=== PATIENT | male | born 1965 | race Caucasian/White ===

== ENCOUNTER 2024-06-01 14:59 | Outpatient (CLI) | payer OTHER, SELFPAY ==
--- NOTE | 2024-06-01 15:03 | CT_ITS ---
WS: [id number] LDCT LUNG CANCER SCREENING HISTORY: NICOTINE DEPENDENCE TECHNIQUE: Axial imaging performed from the apices to 1 cm below the costophrenic angles. Coronal and sagittal reformats are submitted with axial MIP series. All CT scans at [facility] use at least one of these dose optimization techniques: automated exposure control; mA and/or kV adjustment per patient size (includes targeted exams where dose is matched to clinical indication); or iterative reconstruction. DLP: 59.78 mGy.cm DIvol: Mean CTDIvol: 1.00 (mGy) COMPARISON: None available. Diagnostic quality: Satisfactory Lungs: Hyperexpansion with paraseptal and centrilobular emphysema. RIGHT upper lobe 6 mm ovoid nodule, image 37 series 4. Additional biapical pleural thickening bilaterally. Small pleural tag anterior LEFT upper lobe. Scattered benign granulomata throughout both lungs. No endobronchial lesions. Heart: Normal size heart with no pericardial effusion.. Other findings: Calcified hilar and mediastinal lymph nodes. No additional lymph nodes identified. Normal size aorta and pulmonary artery. No adrenal mass. Splenic granulomata. Minimal thoracic spondylosis. CT/CT lung screening [id number] IMPRESSION: LUNG-RADS: 3-Probably Benign FOLLOW UP: 6 Month LDCT OTHER FINDINGS (S MODIFIER): None.
== END 2024-06-01 15:00 | disposition home or self-care (01) ==
PROVIDERS: Visit Provider Electrodiagnostic Medicine
DX: Z12.2 Encounter for screening for malignant neoplasm of respiratory organs (principal); F17.210 Nicotine dependence, cigarettes, uncomplicated; J43.2 Centrilobular emphysema; J43.8 Other emphysema; J92.9 Pleural plaque without asbestos; R91.1 Solitary pulmonary nodule; R91.8 Other nonspecific abnormal finding of lung field; J84.10 Pulmonary fibrosis, unspecified; I89.8 Other specified noninfective disorders of lymphatic vessels and lymph nodes; R93.89 Abnormal findings on diagnostic imaging of other specified body structures
CPT/HCPCS: 71271

== ENCOUNTER 2025-03-04 14:34 | Emergency (ER) | payer OTHER, SELFPAY ==
[2025-03-04 14:38] VITALS: BP 162/99; PULSE 92; RESP 18; TEMP 36.7; O2SAT 98; BMI 20.7
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
--- OUTSIDE RECORDS SUMMARY | 2025-03-04 16:39 | XMS_ITS | Data Portability ---
Author Organization [employer] Yogesh Heller [facility] Address [address] [facility] [address] [place] [address] Care Team Providers Care Customs Compliance Director Name Role Phone YOBANY BLANCHARD Primary Care Provider Unavailabl e Assessment Encounter Date Assessment Date Assessment LastModified by Organization Details LastModified Time 05/19/2024 05/19/2024 Document scribed by Jorge Luis Orta Software Quality Specialist. I was present during interview and exam. I have reviewed and agree with above documentation . Dr. Yobany Blanchard. [email or web address] Not available 05/19/2024 16:41:16 Plan of Treatment Reminders Order Date Submit Date Provider Last Modified By Organization Details Last Modified Time Details Appointments None recorded. Lab CMP, serum or plasma 2024 025 [facility], [address] [facility], [facility] [address], [place], [address], 09:39:10 lipid panel, blood 2024 025 [facility], [address] [facility], [facility] [address], [address], 5 09:39:12 CBC 2024 025 [facility], [address] [facility], [facility] [address], [place], [address], 5 08:54:16 Referral None recorded. Procedures injection/a spiration large joint/bursa (PROC) 2024 025 asurface Not available 5 10:41:06 Surgeries None recorded. Imaging LDCT, chest, for lung cancer screening 2024 [facility] Imaging Orders, [address], [place], [address], 5 14:08:44 Medication Orders Kenalog 40 mg/mL suspension for injection 2024 025 Not available 5 18:25:04 azelastine 137 mcg (0.1 %) nasal spray 2024 025 [id number] [address], [address], [place], [address], 5 05:01:15 prednisone 20 mg tablet 2024 025 [id number], [address], [address], [place], [address], 5 05:01:22 amoxicillin 875 mg-potassiu m clavulanate 125 mg tablet [address] [facility] #[id number], [address], [address], [place], [address], 5 10:27:05 benzonatate 200 mg capsule [address] [facility] #[id number], [address], [address], [place], [address], 5 10:27:09 montelukast 10 mg tablet [address] [facility] #[id number], [address], [address], [place], [address], 4 15:25:50 prednisone 20 mg tablet [address] [facility] #[id number], [address], [address], [place], [address], 05:01:22 Patient TargetsNo targets recorded. Patient Instructions Encounter Date Encounter Id Patient Instructions Last Modified By Organization Details Last Modified Time 05/19/2023 [id number] labs reviewed an d excellent mood has been good xray showed arthritis of ankle and now in a severe inflamation flare; will give steroid burst as this helped in the past [email or web address] Not available 05/19/2023 15:23:33 Reason for Referral None Reported. Results Created Date Observation Date Name Description Value Unit Range Abnormal Flag Note LastModifiedBy Organization Detail LastModifiedTime 05/09/1905/09/2023 CBC WBC 6.2 x10 4.5-10 .5 Not Available [facility] [address], [place], [address], 05/09/2023 09:07:11 05/09/1905/09/2023 CBC RBC 4.36 x10 4.30-5 .90 Not Available [facility] [address], [place], [address], 05/09/2023 09:07:11 05/09/1905/09/2023 CBC HGB 13.9 g/dL 13.5-1 8.0 Not Available [facility] [address], [place], [address], 05/09/2023 09:07:11 05/09/1905/09/2023 CBC HCT 41.0 % 35.0-6 0.0 Not Available [facility] [address], [place], [address], 05/09/2023 09:07:11 05/09/19 24 05/09/2023 CBC MCV 94.0 fL 80.0-9 9.9 Not Available [facility] [address], [place], [address], 05/09/2023 09:07:11 05/09/19 24 05/09/2023 CBC MCH 31.8 pg 27.0-3 2.0 Not Available [facility] [address] [facility] 1, [place], [address], 05/09/2023 09:07:11 05/09/19 24 05/09/2023 CBC MCHC 33.9 g/dL 32.0-3 6.0 Not Available [facility] [address] [facility] [address] [facility] [address], [place], [address], 05/09/2023 09:07:11 05/09/19 24 05/09/2023 CBC RDW 13.3 % 11.5-1 4.5 Not Available [facility] [address] [facility], [place], [address], 05/09/2023 09:07:11 05/09/19 24 05/09/2023 CBC plt 204.6 x10 150.0- 451.0 Not Available [facility] [address] [facility] 1, [place], [address], 05/09/2023 09:07:11 05/09/19 24 05/09/2023 CBC lymphocytes % 25.3 % 20.0-5 0.0 Not Available [facility] [address] [facility] [facility] 1, [place], [address], 05/09/2023 09:07:11 05/09/1905/09/2023 CBC granulcytes % 57.7 % 30.0-7 0.0 Not Available [facility] [address] [facility] [address] [facility] 1, [place], [address], 05/09/2023 09:07:11 05/09/19 24 05/09/2023 CBC monocytes % 10.2 % 2.0-10 .0 high Not Available [facility] [address] [facility] 1, [place], [address], 05/09/2023 09:07:11 05/09/19 24 05/09/2023 CBC granulcytes# 3.6 x10 Not Nat ilable [facility] [address] [facility], [place], [address], 05/09/2023 09:07:11 05/09/19 24 05/09/2023 CBC lymphocytes # 1.6 x10 Not Available [facility] [address] [facility], [place], [address], 05/09/2023 09:07:11 05/09/19 24 05/09/2023 CBC monocytes # 0.6 x10 Not Avai lable [facility] [address] [facility], [place], [address], 05/09/2023 09:07:11 05/09/19 24 05/09/2023 CMP (MALE ) glucose 94.0 mg/dL 60.0-9 9.0 Not Available [facility] [address] [facility], [place], [address], 05/09/2023 11:37:34 05/09/19 24 05/09/2023 CMP (MALE ) BUN (blood urea nitrogen) 10.0 mg/dL 10.0-2 6.0 Not Available [facility] [address] [facility], [place], [address], 05/09/2023 11:37:34 05/09/19 24 05/09/2023 CMP (MALE ) creatinine (serum) 0.8 mg/dL 0.4-1. 5 Not Available [facility] [address] [facility], [place], [address], 05/09/2023 11:37:34 05/09/19 24 05/09/2023 CMP (MALE ) BUN/creatini ne ratio 12.35 ratio Not Available [facility] [address] [facility], [place], [address], 05/09/2023 11:37:34 05/09/19 24 05/09/2023 CMP (MALE ) eGFR calculated 104.0 Not Available [facility] [address] [facility] [address], [place], [address], 05/09/2023 11:37:34 05/09/19 24 05/09/2023 CMP (MALE ) total protein 7.4 g/dL 6.0-8. 5 Not Available [facility] [address] [facility] 1, [place], [address], 05/09/2023 11:37:34 05/09/19 24 05/09/2023 CMP (MALE ) total bilirubin 0.7 mg/dL 0.2-1. 3 Not Available [facility] [address] [facility] [address], [place], [address], 05/09/2023 11:37:34 05/09/19 24 05/09/2023 CMP (MALE ) albumin 4.4 g/dL 3.5-5. 5 Not Available [facility] [address] [facility] 1, [place], [address], 05/09/2023 11:37:34 05/09/19 24 05/09/2023 CMP (MALE ) globulin 3.[address] [facility] [address] [facility] 1, [place], [address], 05/09/2023 11:37:34 05/09/19 24 05/09/2023 CMP (MALE ) AST (SGOT) 30.0 U/L 0.0-46 .0 Not Available [facility] [address] [facility] 1, [place], [address], 05/09/2023 11:37:34 05/09/19 24 05/09/2023 CMP (MALE ) altv (SGPT) 31.0 U/L 13.0-6 9.0 normal Not Available [facility] [address] [facility] 1, [place], [address], 05/09/2023 11:37:34 05/09/19 24 05/09/2023 CMP (MALE ) A/G ratio 1.5 ratio Not Available [facility] [address] [facility], [place], [address], 05/09/2023 11:37:34 05/09/19 24 05/09/2023 CMP (MALE ) ALP phos 69.0 U/L 30.0-1 40.0 normal Not Available [facility] [address] [facility] 1, [place], [address], 05/09/2023 11:37:34 05/09/19 24 05/09/2023 CMP (MALE ) calcium 9.4 mg/dL 8.4-10 .5 Not Available [facility] [address] [facility] 1, [place], [address], 05/09/2023 11:37:34 05/09/19 24 05/09/2023 CMP (MALE ) sodium 139.0 mmol/ L 136.0- 145.0 Not Available [facility] [address] [facility], [place], [address], 05/09/2023 11:37:34 05/09/19 24 05/09/2023 CMP (MALE ) potassium 4.2 mmol/ L 3.5-5. 1 Not Available [facility] [address] [facility] 1, [place], [address], 05/09/2023 11:37:34 05/09/19 24 05/09/2023 CMP (MALE ) chloride 105.0 mmol/ L 98.0-1 10.0 normal Not Available [facility] [address] [facility] 1, [place], [address], 05/09/2023 11:37:34 05/09/19 24 05/09/2023 CMP (MALE ) C02 30.0 mmol/ L 22.0-3 1.0 Not Available [facility] [address] [facility] [address], [place], [address], 05/09/2023 11:37:34 05/09/19 24 05/09/2023 CMP (MALE ) anion gap 4.0 calc Not Available [facility] [address] [address], [place], [address], 05/09/2023 11:37:34 05/09/19 24 05/09/2023 CMP (MALE ) osmolality 286.0 calc Not Available [facility] [address] [address], [place], [address], 05/09/2023 11:37:34 05/09/19 24 05/09/2023 LIPID PROFI LE (MALE ) cholesterol 174.0 mg/dL 0.0-20 0.0 Not Available [facility] [address] [address], [place], [address], 05/09/2023 11:37:36 05/09/19 24 05/09/2023 LIPID PROFI LE (MALE ) trig 98.0 mg/dL 0.0-15 0.0 Not Available [facility] [address] [address], [place], [address], 05/09/2023 11:37:36 05/09/19 24 05/09/2023 LIPID PROFI LE (MALE ) HDL - direct 44.0 mg/dL >40.0 Not Available [facility] [address] [address], [place], [address], 05/09/2023 11:37:36 05/09/19 24 05/09/2023 LIPID PROFI LE (MALE ) VLDL - direct 19.6 mg/dL Not Available [facility] [address] [facility] 1, [place], [address], 05/09/2023 11:37:36 05/09/19 24 05/09/2023 LIPID PROFI LE (MALE ) LDL - direct 110.4 mg/dL 0.0-13 0.0 Not Available [facility] [address] [facility] 1, [place], [address], 05/09/2023 11:37:36 05/09/19 24 05/10/2023 PSA, TOTAL PSA, total 0.77 NG/mL < or = 4.00 normal The total PSA value from this assay syste m is stand ardiz ed again st the WHO stand nat. The test resul t will be appro ximat linda 20% lower when atif red to the equim olar- stand ardiz ed total PSA ([place]erc[place] man Coult er). Atif rison of seria l PSA resul ts shoul d be inter prete d with this fact in mind. This test was perfo rmed using the Aprimoe ns chemi lumin escen t metho d. Value s obtai arik from diffe rent assay metho ds canno t be used inter valencia eamelissay . PSA level s, regar dless of value , shoul d not be inter prete d as absol candelaria evide nce of the prese nce or absen ce of disea se. Not Available [facility] [address] [place], [address], 05/10/2023 06:01:04 05/09/19 24 05/09/2023 TSH, serum or plasm a TSH 1.33 uIU/m L 0.49-3 .82 normal Not Available [facility] ([facility]) [address] [place], [address], 05/09/2023 08:29:37 05/09/19 24 05/09/2023 HbA1c (hemo globi n A1c), blood HbA1c 5.4 Not Available [facility] ([facility]) [address] [place], [address], 05/09/2023 08:29:39 05/21/19 25 05/21/2024 CBC WBC 6.4 x10 4.5-10 .5 Not Available [facility] [address] [facility] 1, [place], [address], 05/21/2024 08:54:16 05/21/19 25 05/21/2024 CBC RBC 4.76 x10 4.30-5 .90 Not Available [facility] [address] [facility] 1, [place], [address], 05/21/2024 08:54:16 05/21/19 25 05/21/2024 CBC HGB 15.3 g/dL 13.5-1 8.0 Not Available [facility] [address] [facility] 1, [place], [address], 05/21/2024 08:54:16 05/21/19 25 05/21/2024 CBC HCT 44.1 % 35.0-6 0.0 Not Available [facility] [address] [facility] 1, [place], [address], 05/21/2024 08:54:16 05/21/19 25 05/21/2024 CBC MCV 92.7 fL 80.0-9 9.9 Not Available [facility] [address] [facility] [address] [facility] 1, [place], [address], 05/21/2024 08:54:16 05/21/19 25 05/21/2024 CBC MCH 32.2 pg 27.0-3 2.0 high Not Available [facility] [address] [facility] [facility] 1, [place], [address], 05/21/2024 08:54:16 05/21/1905/21/2024 CBC MCHC 34.8 g/dL 32.0-3 6.0 Not Available [facility] [address] [facility] 1, [place], [address], 05/21/2024 08:54:16 05/21/1905/21/2024 CBC RDW 13.0 % 11.5-1 4.5 Not Available [facility] [address] [facility] 1, [place], [address], 05/21/2024 08:54:16 05/21/1905/21/2024 CBC plt 232.9 x10 150.0- 451.0 Not Available [facility] [address] [facility], [place], [address], 05/21/2024 08:54:16 05/21/1905/21/2024 CBC lymphocytes % 19.6 % 20.0-5 0.0 low Not Available [facility] [address] [facility] 1, [place], [address], 05/21/2024 08:54:16 05/21/1905/21/2024 CBC granulcytes % 66.2 % 30.0-7 0.0 Not Available [facility] [address] [facility] 1, [place], [address], 05/21/2024 08:54:16 05/21/1905/21/2024 CBC monocytes % 9.5 % 2.0-16 .0 Not Available [facility] [address] [facility], [place], [address], 05/21/2024 08:54:16 05/21/1905/21/2024 CBC granulcytes# 4.2 x10 Not Nat ilable [facility] [address] [address], [place], [address], 05/21/2024 08:54:16 05/21/1905/21/2024 CBC lymphocytes # 1.2 x10 Not Available [facility] [address] [address], [place], [address], 05/21/2024 08:54:16 05/21/1905/21/2024 CBC monocytes # 0.6 x10 Not Avai lable [facility] [address] [address], [place], [address], 05/21/2024 08:54:16 05/21/1905/21/2024 CMP (MALE ) glucose 96.0 mg/dL 60.0-9 9.0 Not Available [facility] [address] [address], [place], [address], 05/21/2024 09:39:10 05/21/19 25 05/21/2024 CMP (MALE ) BUN (blood urea nitrogen) 14.0 mg/dL 10.0-2 6.0 Not Available [facility] [address] [address], [place], [address], 05/21/2024 09:39:10 05/21/1905/21/2024 CMP (MALE ) creatinine (serum) 0.8 mg/dL 0.4-1. 5 Not Available [facility] [address] [address], [place], [address], 05/21/2024 09:39:10 05/21/19 25 05/21/2024 CMP (MALE ) BUN/creatini ne ratio 17.50 ratio Not Available [facility] [address] [address], [place], [address], 05/21/2024 09:39:10 05/21/1905/21/2024 CMP (MALE ) eGFR calculated 105.2 Not Available [facility] [address] [facility], [place], [address], 05/21/2024 09:39:10 05/21/1905/21/2024 CMP (MALE ) total protein 8.3 g/dL 6.0-8. 5 Not Available [facility] [address] [facility] 1, [place], [address], 05/21/2024 09:39:10 05/21/1905/21/2024 CMP (MALE ) total bilirubin 0.9 mg/dL 0.2-1. 3 Not Available [facility] [address] [address], [place], [address], 05/21/2024 09:39:10 05/21/1905/21/2024 CMP (MALE ) albumin 5.0 g/dL 3.5-5. 5 Not Available [facility] [address] [facility] 1, [place], [address], 05/21/2024 09:39:10 05/21/1905/21/2024 CMP (MALE ) globulin 3.3 calc Not Available [facility] [address] [address], [place], [address], 05/21/2024 09:39:10 05/21/1905/21/2024 CMP (MALE ) AST (SGOT) 31.0 U/L 0.0-46 .0 Not Available [facility] [address] [facility] 1, [place], [address], 05/21/2024 09:39:10 05/21/19 25 05/21/2024 CMP (MALE ) altv (SGPT) 27.0 U/L 13.0-6 9.0 normal Not Available [facility] [address] [facility], [place], [address], 05/21/2024 09:39:10 05/21/1905/21/2024 CMP (MALE ) A/G ratio 1.5 ratio Not Available [facility] [address] [facility] 1, [place], [address], 05/21/2024 09:39:10 05/21/19 25 05/21/2024 CMP (MALE ) ALP phos 79.0 U/L 30.0-1 40.0 normal Not Available [facility] [address] [facility] 1, [place], [address], 05/21/2024 09:39:10 05/21/1905/21/2024 CMP (MALE ) calcium 9.5 mg/dL 8.4-10 .5 Not Available [facility] [address] [facility] 1, [place], [address], 05/21/2024 09:39:10 05/21/1905/21/2024 CMP (MALE ) sodium 139.0 mmol/ L 136.0- 145.0 Not Available [facility] [address] [address], [place], [address], 05/21/2024 09:39:10 05/21/19 25 05/21/2024 CMP (MALE ) potassium 4.2 mmol/ L 3.5-5. 1 Not Available [facility] [address] [facility] 1, [place], [address], 05/21/2024 09:39:10 05/21/1905/21/2024 CMP (MALE ) chloride 99.0 mmol/ L 98.0-1 10.0 normal Not Available [facility] [address] [facility] 1, [place], [address], 05/21/2024 09:39:10 05/21/19 25 05/21/2024 CMP (MALE ) C02 29.0 mmol/ L 22.0-3 1.0 Not Available [facility] [address] [facility] 1, [place], [address], 05/21/2024 09:39:10 05/21/1905/21/2024 CMP (MALE ) anion gap 11.0 calc Not Available [facility] [address] [facility] 1, [place], [address], 05/21/2024 09:39:10 05/21/1905/21/2024 CMP (MALE ) osmolality 287.5 calc Not Available [facility] [address] [address], [place], [address], 05/21/2024 09:39:10 05/21/1905/21/2024 LIPID PROFI LE (MALE ) cholesterol 195.0 mg/dL 0.0-20 0.0 Not Available [facility] [address] [address], [place], [address], 05/21/2024 09:39:12 05/21/1905/21/2024 LIPID PROFI LE (MALE ) trig 91.0 mg/dL 0.0-15 0.0 Not Available [facility] [address] [address], [place], [address], 05/21/2024 09:39:12 05/21/1905/21/2024 LIPID PROFI LE (MALE ) HDL - direct 67.0 mg/dL >40.0 Not Available [facility] [address] [facility] 1, [place], [address], 05/21/2024 09:39:12 05/21/1905/21/2024 LIPID PROFI LE (MALE ) VLDL - direct 18.2 mg/dL Not Available [facility] [address], [place], [address], 05/21/2024 09:39:12 05/21/1905/21/2024 LIPID PROFI FADI (MALE ) LDL - direct 109.8 mg/dL 0.0-13 0.0 Not Available [facility] [address], [place], [address], 05/21/2024 09:39:12 06/02/1906/01/2024 LDCT, chest , for lung cance r scree michelle No observ ation record ed. [email or web address], [place], [address], 06/08/2024 12:21:42 Result Notes None recorded. Problems Name Problem SNOMED Code Status Onset Date Resolution Date Notes Provider Name and Address Organization Details Recorded Time Nicotine dependen ce 78333764 Completed 201612/31/2016 Smoker - Status is Inactive ; 01/01/20 17 11:31AM by Nina Dejesus CMT, Annotati on/Adden dum; Promoted ; acuity set as *; Not Available [employer] 3 03:10:50 Generali zed anxiety disorder 36970983 Active 2023 RUBENS CHERRY [address], [address] , [facility], LFazalLFazalCFazal 5 08:23:23 Gout 58053868 Active 2024 RUBENS CHERRY [address], [address] , [facility], LFazalLFazalCFazal 5 08:23:27 Solitary nodule of lung 967703221 Active 2024 on LDCT 06/02/24. right upper lobe 6mm. recommen d repeat 6mts. Yobany Blanchard DO [address] [place] [address], [address] , [facility] 5 17:45:31 Left rotator cuff syndrome 52197931535 9106 Active 2024 Yobany Blanchard [address], [address] , [facility] 17:37:43 Adhesive capsulit is of left shoulder [id number] 9107 Active 2024 Yobany Blanchard [address], [address] , [facility] 17:38:02 Problem Notes None recorded. Procedures Surgical History Date Name Laterality Status Provider Name and Address Organization Details Recorded Time 5 Joint Inj Kenalog- Shoulder, Hip, Knee completed Yobany Blanchard [address], [address], [facility] 11/09/2024 17:30:44 3 radiography of ankle completed DIVINE COLON [facility] 03/12/2023 11:57:57 neck repair completed Britney Rene [facility] 06/28/2024 08:20:11 Imaging Results None recorded. Procedure Notes None recorded. Medical Equipment None Reported. Allergies No known drug allergies Medications Name Sig Start Date Stop Date Status Note LastModified by Organization Details LastModified Time sildenafi l 50 mg tablet TAKE 1-3 TABLETS BY MOUTH NEEDED active Not Available Not Available No t Available alprazola m 1 mg tablet TAKE 1/2-1 TABLET BY MOUTH THREE TIMES DAILY NEEDED 2024 active Not Available Not Available Not Avai lable benzonata te 200 mg capsule TAKE 1 CAPSULE BY MOUTH THREE TIMES A DAY NEEDED 08/17 completed Not Available Not Available Not Available prednison e 20 mg tablet Take 2 tablets every day by oral route for 6 days. 08/30 completed Not Available Not Available Not Available triamcino lone acetonide 0.1 % topical cream qd to qid as needed for rash 06/28 completed Not Available Not Available Not Available Kenalog 40 mg/mL suspensio n for injection Take 1 mL by injectio n route. 2024 active Not Available Not Available Not Avai lable simvastat in 20 mg tablet TAKE 1 TABLET BY MOUTH EVERYDAY AT BEDTIME 2024 active Not Available Not Available Not Avai lable monteluka st 10 mg tablet TAKE 1 TABLET BY MOUTH EVERY DAY active Not Available Not Available No t Available mupirocin 2 % topical ointment APPLY A SMALL AMOUNT TO AFFECTED AREA 3 TIMES A DAY 06/28 completed Not Available Not Available Not Available azelastin e 137 mcg (0.1 %) nasal spray SPRAY 2 SPRAYS IN EACH NOSTRIL TWICE A DAY FOR 14 DAYS active Not Available Not Available No t Available amoxicill in 875 mg-potass ium clavulana te 125 mg tablet TAKE 1 TABLET BY MOUTH TWICE A DAY FOR 7 DAYS 08/17 completed Not Available Not Available Not Available alprazola m three times daily, as needed 05/19 completed Recorded 06/03/19 23 10:54AM by Sesar Linda DO, Office Visit; Refill Quantity : 270; Tablet; Not Available Not Available Not Available sildenafi l as needed 05/19 completed for sex; Recorded 06/03/19 23 10:53AM by Sesar Linda DO, Office Visit; Refill Quantity : 30; Tablet; Not Available Not Available Not Available Fish Oil 300 mg-1,000 mg capsule daily 05/19 completed Not Available Not Available Not Available Vitals Date Recorded Body height Body mass index (BMI) Body weight Respiratory rate Heart rate Oxygen saturation Oxygen saturation in Arterial blood by Pulse oximetry Systolic And Diastolic Provider Name and Address Organization Details Last Updated DateTime 4 177.8 cm 21.8 kg/m2 40839.0 4 g 18 /min 108 /min 98 % 98 % 146/74 mm[Hg] JOSHUA LOPEZ [facility] 4 15:16:57 Date Recorded Body height Body mass index (BMI) Body weight Oxygen saturation Oxygen saturation in Arterial blood by Pulse oximetry Heart rate Respiratory rate Systolic And Diastolic Provider Name and Address Organization Details Last Updated DateTime 5 177.8 cm 22.1 kg/m2 45203.2 2 g 98 % 98 % 96 /min 18 /min 152/88 mm[Hg] ADELA MULLIGAN [facility] L.L.CFazal 5 16:33:30 Date Recorded Body height Body mass index (BMI) Body weight Oxygen saturation Oxygen saturation in Arterial blood by Pulse oximetry Heart rate Respiratory rate Body temperature Systolic And Diastolic Provider Name and Address Organization Details Last Updated DateTime 5 177.8 cm 21.7 kg/m2 53876.4 5 g 97 % 97 % 88 /min 16 /min 98.6 [degF] 148/84 mm[Hg] Britney Rene [facility] L.L.CFazal 5 08:21:54 Date Recorded Body height Body mass index (BMI) Body weight Oxygen saturation Oxygen saturation in Arterial blood by Pulse oximetry Heart rate Body temperature Systolic And Diastolic Provider Name and Address Organization Details Last Updated DateTime 5 177.8 cm 21.3 kg/m2 72599.3 7 g 98 % 98 % 85 /min 98.3 [degF] 116/60 mm[Hg] Tess Jose Miguel [facility], L.L.CFazal 5 10:30:17 Date Recorded Body height Body mass index (BMI) Body weight Respiratory rate Oxygen saturation Oxygen saturation in Arterial blood by Pulse oximetry Heart rate Systolic And Diastolic Provider Name and Address Organization Details Last Updated DateTime 5 177.8 cm 21.2 kg/m2 37275.6 7 g 18 /min 98 % 98 % 78 /min 139/89 mm[Hg] Sobeida Khanna [facility] L.L.CFazal 5 16:59:37 Social History Question Answer Notes LastModified by Organizat ion Details LastModified Time Tobacco Smoking Status Current Every Day Smoker Jorge Luis horowitz [facility] 05/19/2024 16:48:32 What Is Your Current Pack Years? 30ormorepacky ears dkiest Information not available 05/19/2024 Sex: Unknown Functional Status None recorded. Mental Status None recorded. Family History Nothing Reported Notes:COPD, Yuliana; Depress ion., Ross; No count, in care home somewhere., 3 Sis, 1 Bro; Depression. Mother with lung ca. Medical History No medical history recorded. Immunizations Vaccine Type Date Status Note Provider Ruel tate and Address Organization Details Recorded Time COVID-19 vaccine, vector-nr, rS-Ad26, PF, 0.5 mL 05/15/2021 completed CHRIS MELISSA [address] [place] [address], [phone], [facility] 03/10/2023 09:27:58 COVID-19 vaccine, vector-nr, rS-Ad26, PF, 0.5 mL 08/18/2020 completed CHRIS MELISSA [address] [place] [address], [phone], [facility] 03/10/2023 09:27:58 Tdap 03/10/2023 [facility] 03/10/2023 16:47:15 Past Encounters Encounter ID Performer Location Encounter Start Date Encounter Closed Date Diagnosis/Indication Diagnosis SNOMED-CT Code Diagnosis ICD10 Code Diagnosis IMO Codes Diagnosis Note [id number] CHRIS MELISSA [facility] ([facility]) [address] [place] [phone] 03/10/2023 09:05:10 03/10/2023 13:05:59 Abrasion 838678858 T14.8XXA Pain of ri ght ankle joint 7091294239 4832257 M25.571 Probable fracture of cuboid bone in foot. Will send xray for over read. Podiatry referral. Order given for walking boot. [id number] Sesar Linda DO [facility] ([facility]) [address] [place] [address] 03/17/2023 15:29:40 03/17/2023 16:00:05 Pain of right ankle joint 4685494608 3097146 M25.269 [id number] Sesar iLnda DO [facility] ([facility]) [address] [place] [phone] 05/09/2023 08:20:35 05/12/2023 14:26:18 Adult health examination 504154675 Z00.00 [id number] Sesar Linda DO [facility] ([facility]) [address] [place] [address] 05/19/2023 15:07:52 05/19/2023 15:47:56 Active or passive immunization 650315597 Z23 Adult heal th examination 284755581 Z00.01 Hypercholesterolemia 136 89841 E78.00 Pain of le ft ankle joint 3682999072 4612620 M25.572 Seasonal allergy 7506799 04 J30.2 [id number] Yobany Blanchard DO [facility] ([facility]) [address] [place] [address] 05/19/2024 15:40:59 05/21/2024 17:32:19 Hyperlipidemia 68132032 E78.5 Lipid panel today, continues Tab callejas anxiety disorder 85894434 F41.1 Alprazolam as needed. Gout 03464703 M10.9 Questionab le, left ankle, has occasional pain without injury, no swelling or redness. Smoker 99689000 F17.200 LDCT. 40 pack years. Screening for malignant neoplasm of colon 187857686 Z12.11 Pt willing to update Colonoscop y, wants to wait right now. [id number] CHRIS ORTIZ [facility] ([facility]) [address] [place] [phone] 06/28/2024 08:14:45 06/28/2024 08:38:53 Acute pansinusitis 3408105 J01.40 Discussed use of antibiotic . Take with food.May use Cachorro's nasal inserts and also apply on chest. Push oral fluids. Consider nasal saline rinses and otc decongesta nt.Use tylenol/mo kwame for leigh. [id number] CHRIS ORTIZ [facility] ([facility]) [address] [place] [address] 08/17/2024 10:20:15 08/17/2024 11:53:23 Seasonal allergy 691145390 J30.2 85518 Symptoms started yesterday after being outside all day. Discussed use of prescribed medication s, continue daily montelukas t. If you develop fever, worsening symptoms or concerns arise then return for re-evaluat ion. [id number] Yobany Blanchard DO [facility] ([facility]) [address] [place] [address] 11/09/2024 15:57:28 11/10/2024 12:28:19 Adhesive capsulitis of left shoulder 7108485011 00533 M75.02 8520394 injection today. counseled on home exercises and pain meds otc. Left rotat or cuff syndrome 8919498031 83660 M75.566 [id number] counseled on presumed dx. and DDX as well as workup and treatment options.Pt desires to proceed with Joint injection today. Performed as documented . Pt tolerated well. counseled on limiting activity the next 24 hrs. return if problems. Health Concerns Section Related Observation LastModified by Organization Detai ls LastModified Time None Recorded Concern Status LastModified by Organization Details LastModified Time None Recorded Advance Directives Directive None Recorded Payers Insurance Date Sequence Insurance Name Policy Number Policy Mata Covered Member ID Mata Member ID Guarantor Name 11/09/2024 1 [facility] [id number] Steve Sanchez [id number] Steve Sanchez Notes Date Note Type Note Provider Name and Address Organization Details Recorded Time 05/19/2023 text/html Annual WellnessReported by PatientSocial/Behavior al HistoryFor diet and nutrition, patient reportshealthy diet. For fracture risk, patient reportsno history of fracturesandno recent explained fracture. For physical activity, patient reportsexercises on a regular basis. For additional lifestyle factors, patient reportsno tobacco use.ROS as noted in the HPI Sesar Linda DO [address] [place] [address], [phone], [facility] 05/19/2023 15:25:50 05/19/2024 text/html Annual WellnessReported by PatientSocial/Behavior al HistoryFor additional lifestyle factors, patient reportstobacco usebut reportsdrinks alcohol (mild-moderate). For diet and nutrition, patient reportshealthy diet. For fracture risk, patient reportsno history of fracturesandno sudden unexplained fractures. For physical activity, patient reportsexercises on a regular basisandgood physical condition.Mental Status:For depression risk, patient reportsnever feels sad, empty, or tearful,no agitation, andno history of depression.Functional AbilityFor vision, patient reportsbriefly vision loss (glasses). For hearing, patient reportsno loss of hearing.ROS as noted in the HPI New pt, previous PCP was Dr. Linda right shoulder pain for years, no known injury would like labs drawn, labs last done on 05/09/23:Chol 174, Tri 98, HDL 44, LDL 110.TSH 1.33.A1c 5.4.PSA 0.77. Colonoscopy: never, willing to update.No current bowel symptoms. H/o Anxiety, taking Alprazolam when he first gets home from work, then again when he lays down to bed at night, with Melatonin, to help him calm down to sleep. He admits he is not a breakfast person. Occasionally on the weekends he gets up and gets busy he gets dizzy, light headed, realizes he needs to eat, improves after eating. Working at [employer] for 30+ years, retiring in 39 months. Smoker for years.Fhx: mother passed with lung ca. He has been told he has Gout in his left ankle, having occasional pain, no swelling. Yobany Blanchard, [address] [place], [phone], [facility], L.LBharti 05/21/2024 12:17:37 06/28/2024 text/html Sinusitis/Allerg yRepor ray by PatientROS as noted in the HPI walk in patientpatient is here today for coughing, sinus congestion and facial pressure that started 5 days ago. Has been taking otc sinus/cold medicine and antihistamine. Cough kept him up last night. CHIRS ORTIZ [address] [place], [phone], [facility], Rui. 06/28/2024 08:30:09 08/17/2024 text/html ROS as noted in the HPI walk inPt presents with sneezing, post nasal drainage, and congestion that started yesterday after being outside working. No meds taken for this. Was treated for a sinus infection last month and states symptoms cleared. Pt thinks his current symptoms are due to the high pollen right now. CHRIS ORTIZ [address] [place] [address], [phone], [facility], Rui. 08/17/2024 11:30:28 11/09/2024 text/html ROS as noted in the HPI Pt presents for shoulder pain He c/o pain to his left shoulder for 3 weeks. He plays golf and has had problems with the same shoulder in the past He rates the pain at 8/10 sitting but if moving or moving the wrong way it is 10/10He has limited rom and unable to pull clothes on upward with out pain He has had a joint injection to the left shoulder in the past and it helped so he wants to discuss getting joint injection Yobany Blanchard DO [address] [place], [phone], [facility], Rui. 11/09/2024 17:41:11
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
[2025-03-04 18:13] VITALS: BP 165/77; PULSE 89; RESP 18; O2SAT 100
== END 2025-03-04 18:14 | disposition home or self-care (01) ==
PROVIDERS: Emergency Provider Family Medicine
DX: S13.4XXA Sprain of ligaments of cervical spine, initial encounter (principal); V89.2XXA Person injured in unspecified motor-vehicle accident, traffic, initial encounter
CPT/HCPCS: 70450; 72125; 99284